=== PATIENT | male | born 1995 | race Asian ===

== ENCOUNTER 2017-05-16 20:28 | Emergency (ER) | payer SELFPAY | END 2017-05-16 23:22 | disposition left against medical advice (07) | LOC: FTE 20:28 | DX: S01.01XA Laceration without foreign body of scalp, initial encounter (principal); J45.909 Unspecified asthma, uncomplicated; F17.210 Nicotine dependence, cigarettes, uncomplicated; V49.50XA Passenger injured in collision with unspecified motor vehicles in traffic accident, initial encounter | CPT/HCPCS: 12001; 99282-25 ==